=== PATIENT | female | born 1990 | race Caucasian/White ===

== ENCOUNTER 2023-07-10 09:31 | Emergency (ER) | payer BC ==
[2023-07-10 09:53] VITALS: BP 133/76; O2SAT 98
[2023-07-10] MEDS ORDERED: TRIAMCINOLONE 40 MG/ML VIAL IM STA (11:11)
[2023-07-10] MEDS ORDERED: BUPIVACAINE 0.5% PF 10 ML VIAL IM ONE (11:11)
--- NOTE | 2023-07-10 11:12 | ED Physician Documentation ---
History of Present Illness - Stated complaint Stated Complaint: LOWER BACK RT PX,NAUSEA - Chief complaint Chief Complaint: Back Pain - History obtained from History obtained from: Patient - Additonal information Additional information: 33-year-old with chronic recurrent sciatica presents for clearance for flare of same. Its been going on for about a month. Its in the right low back with radiation down the lateral right thigh to the foot. She gets some tingling in the foot. In the past she has had relief with trigger point injections. She went to the walk-in clinic about a week ago and received IM steroids and muscle relaxers without relief. She denies saddle anesthesia, fevers, incontinence. PD PAST MEDICAL HISTORY - Present Medications Home Medications: Ambulatory Orders Medication Instructions Recorded Confirmed Cyclobenzaprine [Flexeril] 10 mg ORAL TID PRN 07/10/23 07/10/23 HYDROcod/ACETAM 5/325 [[place] 5/325] 1 - 2 tab PO Q6H PRN #15 tablet 07/10/23 methylPREDNISolone [Medrol Dose 1 each PO .PACKAGEINSTRUCTIONS 07/10/23 07/10/23 Pack] - Allergies Allergies/Adverse Reactions: Allergies Allergy/AdvReac Type Severity Reaction Status Date / Time Penicillins Allergy Unknown Verified 07/10/23 09:42 amoxicillin AdvReac Unknown Verified 07/10/23 09:42 PD ED PE NORMAL - Vitals Vital signs reviewed: Yes - General General: Alert and oriented X 3, No acute distress - Abdomen Abdomen: Normal bowel sounds, Soft, Non tender - Extremities Extremities: Other (Symmetric sensation throughout the legs, she has an obviously decreased right L4-L5/patellar reflex. Foot reflexes and strength throughout the lower extremities are normal.) - Neuro Neuro: Alert and oriented X 3, Normal speech Results - Vitals Vitals: Vital Signs - 24 hr 07/10/23 09:44 Temperature 36.3 C L Heart Rate 83 Respiratory 18 Rate Blood Pressure 133/76 H O2 Saturation 98 Oxygen O2 Source Room air Procedures - General procedure General procedure: Trigger point injection was done by me in the area of maximal tenderness near the right sciatic notch with a mixture of 1 mL of 40 mg triamcinolone and 8 mL of Marcaine 0.5% PD Medical Decision Making - ED course ED course: This patient has seemingly uncomplicated musculoskeletal back pain. The patient has no "red flags." Specifically denies IV drug use, fevers, incontinence, saddle anesthesia. Spinal epidural abscess was considered, given that the patient has no fever, is not diabetic, has no spinal tenderness, does not use IV drugs, and has no bilateral neurologic symptoms, the diagnosis of spinal epidural abscess is considered exceedingly unlikely. Departure - Departure Disposition: 01 Home, Self Care Clinical Impression: Sciatica Condition: Good Record reviewed to determine appropriate education?: Yes Instructions: ED Sciatica Prescriptions: HYDROcod/ACETAM 5/325 [[place] 5/325] 1 - 2 tab PO Q6H PRN #15 tablet PRN Reason: Pain Comments: I sent her prescription went chronically to [facility] in [place]. Try to establish with a primary care physician and consider further evaluation with MRI if symptoms are persistent. Return for new or worsening symptoms. I am prescribing a short course of narcotic pain medication for you. These are potentially dangerous and addictive medications that should be used carefully. These medications may constipate you. Take an oyxv-gtc-nogwiob stool softener (docusate) twice daily with plenty of water while taking these medications. If you go 24 hours without a bowel movement, take ibed-fio-pbztsxa miralax, per package instructions. Do not drink or drive while taking these medications. If you received narcotic or sedating medications while in the emergency department, do not drive for 24 hours. Store this medication in a safe, secure place and out of reach of children. It is a violation of federal law to give or sell this medication to another person or to use in a manner other than prescribed. The ED will not refill narcotic prescriptions, including prescriptions lost or stolen. To dispose of unwanted medications: 1. [facility] provides a [facility] box for medication in pill form only (no liquids) 8:00 am to 4:30 p.m. Sunday-Sunday in the lobby of the [facility] [place], [address] [place] [address]. Empty pills into ziplock bag before disposal. Call [phone] for information. 2.[facility] [facility] is a free service available to all [facility] residents. Go to [email or web address] Note that many narcotic pain relievers also contain Tylenol/acetaminophen. Please ensure that your total dose of acetaminophen from all sources does not exceed 3 g (3000 mg) per day.
== END 2023-07-10 11:38 | disposition home or self-care (01) ==
LOC: ED 09:31
DX: M54.31 Sciatica, right side (principal)
CPT/HCPCS: 20552; 99283

== ENCOUNTER 2023-08-29 14:10 | Outpatient (CLI) | payer BC ==
--- NOTE | 2023-08-29 15:07 | XRAY Report ---
PROCEDURE: Lumbar Spine Complete INDICATIONS: LUMBAGO WITH SCIATICA, RIGHT SIDE TECHNIQUE: 4 views of the lumbar spine were acquired. COMPARISON: None. FINDINGS: Bones: 5 nbf-lko-wgoegix vertebrae are present. Straightening of normal lumbar lordosis. Mild degene rative changes with mild multilevel disc height loss, most pronounced at L4-L5 with degenerative endp late changes and marginal spurring. Mild facet arthropathy at L4-5 and L5-S1. No vertebral body compr ession fractures. No suspicious bony lesions. Soft tissues: Overlying bowel gas pattern is normal. No suspicious soft tissue calcifications. IMPRESSION: Mild degenerative changes of the lower lumbar spine. Reviewed by: Viral Elam MD on 08/29/2023 3:05 PM PST Approved by: Viral Elam MD on 08/29/2023 3:05 PM PST Station ID: [id number]
== END 2023-08-29 14:11 | disposition home or self-care (01) ==
LOC: DI 14:10
PROVIDERS: ATTEND Nurse Practitioner Family
DX: M54.41 Lumbago with sciatica, right side (principal); M47.816 Spondylosis without myelopathy or radiculopathy, lumbar region

== ENCOUNTER 2024-04-18 19:29 | Emergency (ER) | payer BC, OTHER ==
--- NOTE | 2024-04-18 21:37 | ED Physician Documentation ---
PD HPI UPPER EXT INJURY - Stated complaint Stated Complaint: RT FINGER LAC - Chief complaint Chief Complaint: Laceration - History obtained from History obtained from: Patient - History of Present Illness Location: Right, Finger (index) Type of injury: Crush Where injury occurred: Home Pain level max: 3 Pain level now: 2 Associated symptoms: No: Weakness, Numbness, Tingling, Swelling - Additonal information Additional information: 34-year-old female states that she had placed sticks into a yard waste container and was trying to break the sticks down so they would fit better. She states that she picked up a kettle moses to use to break the sticks but accidentally poked her finger with a stick causing a laceration. Tetanus is up-to-date. Worse with palpation, better with rest. No swelling. Review of Systems Skin: denies: Rash PD PAST MEDICAL HISTORY - Past Medical History Past Medical History: No - Past Surgical History Past Surgical History: Yes General: Cholecystectomy, Gastric surgery - Present Medications Home Medications: Ambulatory Orders Medication Instructions Recorded Confirmed No Known Home Medications 04/18/24 04/18/24 - Allergies Allergies/Adverse Reactions: Allergies Allergy/AdvReac Type Severity Reaction Status Date / Time Penicillins Allergy Unknown Verified 04/18/24 21:04 amoxicillin AdvReac Unknown Verified 04/18/24 21:04 - Social History Does the pt smoke?: No Smoking Status: Never smoker Does the pt drink ETOH?: No Does the pt have substance abuse?: No - Immunizations Immunizations are current?: Yes - POLST Patient has POLST: No PD ED PE NORMAL - Vitals Vital signs reviewed: Yes - General General: Alert and oriented X 3, No acute distress - Derm Derm: Warm and dry - Extremities Extremities: Other (R hand - Small skin avulsion to the medial aspect of the nail fold, right index finger. No bony tenderness. No swelling of the pad. Neurovascular intact.) - Neuro Neuro: Alert and oriented X 3 - Psych Psych: Normal mood, Normal affect Results - Vitals Vitals: Vital Signs - 24 hr 04/18/24 04/18/24 20:17 21:48 Temperature 36.3 C L Heart Rate 77 66 Respiratory 16 16 Rate Blood Pressure 150/89 H 139/78 H O2 Saturation 100 99 Oxygen O2 Source Room air PD Medical Decision Making - ED course Complexity details: considered differential, d/w patient ED course: Wound was cleansed and bandaged. There is no laceration repair. Small skin avulsion. We did discuss an x-ray but patient is comfortable will foregoing the x-ray at this time, I think this is reasonable given her injury. Neurovascular intact. Wound care instructions given at bedside. Patient counseled regarding signs and symptoms for which I believe and urgent re-evaluation would be necessary. Patient with good understanding of and agreement to plan and is comfortable going home at this time This document was made in part using voice recognition software. While efforts are made to proofread this document, sound alike and grammatical errors may occur. Departure - Departure Disposition: Home, Self Care Clinical Impression: Avulsion, skin Condition: Good Instructions: ED Wound Care Follow-Up: your,doctor in 1 week for wound check [Other] Comments: Please follow-up with your doctor for a wound check in about a week. Keep the wound clean. You can remove the Xeroform, the yellow gauze, in about 3 to 4 days. You can apply bacitracin as needed to the area. Please return if you notice redness, swelling or drainage from the wound. Forms: PCP List Discharge Date/Time: 04/18/24 21:48
[2024-04-18 21:56] VITALS: BP 139/78; O2SAT 99
== END 2024-04-18 21:48 | disposition home or self-care (01) ==
LOC: ED 19:29
DX: S61.210A Laceration without foreign body of right index finger without damage to nail, initial encounter (principal); W22.8XXA Striking against or struck by other objects, initial encounter; Y93.H9 Activity, other involving exterior property and land maintenance, building and construction; Y92.89 Other specified places as the place of occurrence of the external cause
CPT/HCPCS: 99281; 99283